=== PATIENT | female | born 1965 | race Caucasian/White ===

== ENCOUNTER → 2017-07-21 | Outpatient (CLI) | payer MEDICAID ==
[2017-07-21 16:41] LABS: LYMPH % 29.6 % (10-50.0)
--- NOTE | 2017-07-21 17:12 | RADIOLOGY REPORT PS360 ---
CHEST(2 VIEWS-NOT PORTABLE) HISTORY: COPD WITH EXACERBATION ORDERING PHYSICIAN: Dallas Scott MD PATIENT AGE: 52 years COMPARISON: None available FINDINGS: The cardiomediastinal silhouette and pulmonary vascularity are within normal limits. The lungs are clear without infiltrates or pleural effusions. No acute bony abnormalities. There is a small nodular opacity in left perihilar region at 6 mm indeterminate. The remaining lungs are clear. IMPRESSION: 1. No acute finding. 2. 6 to 7 mm left perihilar nodule. Consider short-term radiographic follow-up in 2-3 months to confirm stability
[2017-07-21 17:40] LABS: BUN 12 mg/dL (7-18)
[2017-07-21 17:42] LABS: GFR (ESTIMATED) 76 ML/MIN (59-)
== END ==
LOC: LAB 16:24
PROVIDERS: Internal Medicine Adolescent Medicine
DX: J44.1 Chronic obstructive pulmonary disease with (acute) exacerbation (principal); E03.9 Hypothyroidism, unspecified

== ENCOUNTER → 2017-07-31 | Outpatient (CLI) | payer MEDICAID ==
--- NOTE | 2017-07-31 16:05 | RADIOLOGY REPORT PS360 ---
CT CHEST W/WO CONTRAST HISTORY: Solitary pulmonary nodule, COPD LUNG NODULE ORDERING PHYSICIAN: Dallas Scott MD PATIENT AGE: 52 years TECHNIQUE: Helical acquisition obtained without and with contrast .. Axial, sagittal, and coronal reformatted images are generated and reviewed. COMPARISON: Radiograph of 07/21/2017 FINDINGS: No mediastinal or hilar mass or adenopathy is evident. Normal heart size. No evidence of pericardial effusion. No evidence of thoracic aortic aneurysm. A 3 mm noncalcified nodule present in the right lung base. The previously noted nodular opacity in the left perihilar region represents an overlapping vessel. No suspicious nodules evident on the left. No effusions or infiltrates. Upper abdominal images demonstrates a complex lesion in the left kidney laterally within the mid aspect which is partially calcified and isodense centrally consistent with a complex cyst. There is a nonobstructing left renal calculus at 5 mm in the mid aspect of the left kidney. The renal lesion is incompletely imaged. If the patient has any prior abdomen CTs, it would be recommended that they be submitted for comparison. No acute bony anomalies. IMPRESSION: 1. No acute finding of the chest. Previously noted nodular opacity in the left perihilar region represents overlapping vessel. There is a 3 mm noncalcified nodule in the right lung base nonspecific 2. Complex left renal cystic lesion incompletely imaged with some calcification peripherally. Consider follow-up CT of the kidneys without and with contrast with three-phase imaging if there are no old CTs available for comparison. 3. Left nephrolithiasis HEART: Unremarkable. Normal heart size. No significant pericardial effusion. MEDIASTINAL AND HILAR STRUCTURES: No mediastinal or hilar mass evident. No dominant adenopathy. PULMONARY ARTERIES: No pulmonary embolus evident. AORTA: No acute finding. No thoracic aortic aneurysm or dissection evident LUNGS: Unremarkable. No mass or consolidation. PLEURAL SPACES: No significant effusion. No evidence of pneumothorax. BONY STRUCTURES: No acute bony abnormalities apparent LYMPH NODES: No enlarged lymph nodes evident UPPER ABDOMEN: Unremarkable ADDITIONAL FINDINGS: No other significant abnormalities IMPRESSION:
== END ==
LOC: RAD 14:46
DX: R91.1 Solitary pulmonary nodule (principal)
CPT/HCPCS: Q9967

== ENCOUNTER → 2017-08-11 | Outpatient (CLI) | payer MEDICAID ==
--- NOTE | 2017-08-12 07:21 | RADIOLOGY REPORT PS360 ---
CT ABD PELVIS W/WO CONTRAST INDICATION: Left renal lesion, left renal mass RENAL CYST ORDERING PHYSICIAN: Dallas Scott MD PATIENT AGE: 52 years COMPARISON: Chest CT of 07/31/2017 which demonstrated a left renal mass TECHNIQUE: Axial images are obtained without and with 75 mL of Isovue-[id number]. Immediate and delayed post enhanced imaging was performed. Sagittal and coronal reformatted images are reviewed as well. FINDINGS: There is a partially calcified lesion involving the mid aspect of left kidney laterally measuring 2 x 2 centimeters. Calcification is coarse. There is cortical thinning at this region. This may be related to renal scar with dystrophic calcification. No significant enhancement. If the patient has old films elsewhere, it is recommended they be obtained for comparison and review. If there are no old films available then, would recommend 3 month follow-up to confirm short-term stability. Would also consider ultrasound at that point in time as well. No hydronephrosis. The right kidney has a small punctate calculus inferiorly. No right renal mass evident. Punctate calculus is also present in the mid polar region of the left kidney. The liver, spleen, adrenal glands and pancreas have an unremarkable appearance. No retroperitoneal adenopathy. Unremarkable appearance of the inferior vena cava. No intestinal obstruction or free air. No evidence of appendicitis or diverticulitis. No pelvic mass or abnormal fluid collection. There is mild sigmoid diverticulosis. No acute bony anomalies. IMPRESSION: 1. Complex 2 x 2 centimeter partially calcified left renal mass. This is associated with focal cortical volume loss and may represent sequela from renal scarring with dystrophic calcification. Short-term CT follow-up without and with contrast recommended in 3 months to confirm short-term stability unless patient has old films at another institution. If there are old films available then an addendum may be issued once reviewed. 2. Bilateral nephrolithiasis.
== END ==
LOC: RAD 10:11
DX: N28.1 Cyst of kidney, acquired (principal); N28.89 Other specified disorders of kidney and ureter
CPT/HCPCS: Q9967